=== PATIENT | female | born 1960 | race Caucasian/White ===

== ENCOUNTER → 2018-01-15 17:24 | Outpatient (CLI) | payer BC ==
[2011-07-31 06:24] VITALS: BMI 25.6
== END | disposition home or self-care (01) ==
LOC: D.MAMMO 10:00
DX: Z12.31 Encounter for screening mammogram for malignant neoplasm of breast (principal)

== ENCOUNTER → 2019-04-27 12:00 | Outpatient (CLI) | payer BC ==
[2011-07-31 06:24] VITALS: BMI 25.6
== END | disposition home or self-care (01) ==
LOC: D.MAMMO 12:00
PROVIDERS: ATTEND Family Medicine
DX: Z12.31 Encounter for screening mammogram for malignant neoplasm of breast (principal)